=== PATIENT | male | born 1985 | race Caucasian/White ===

== ENCOUNTER 2016-11-06 08:40 | Emergency (ER) | payer BC ==
[2016-11-06 08:59] VITALS: BP 142/95
[2016-11-06] MEDS ORDERED: Tetracaine 0.5% 2 ML Bottle EYERT ONE (09:04)
[2016-11-06] MEDS ORDERED: Fluorescein 1 MG Ophth Strip EYERT ONE (09:05)
[2016-11-06] MEDS ORDERED: Erythromycin Base 0.5% Ophth Oint 3.5 GM Tube EYERT ONE (09:10)
--- NOTE | 2016-11-06 09:16 | EDM.PDOC ---
ED HPI GENERAL MEDICAL PROBLEM - General Chief Complaint: Eye Problems Stated Complaint: eye pain Time Seen by Provider: 11/06/16 08:58 Source of Information: Reports: Patient History Limitations: Reports: No Limitations - History of Present Illness INITIAL COMMENTS - FREE TEXT/NARRATIVE: This patient is a 31 year old male that presents to the ER. Patient reports waking up with right eye burning, itching, redness, watering. Patient denies injury. Patient denies being around grass or dust or an BF particles the past 2 days. Reports mowing 3 days ago. Patient denies espana, dizziness, n, v, d, f, congestion, cough, cp, soa. Patient vision intact. 20/20. Onset: Today Location: Reports: Other (Right eye) Severity: Mild Improves with: Reports: None Worsens with: Reports: None Associated Symptoms: Reports: No Other Symptoms. Denies: Confusion, Chest Pain , Cough, cough w sputum, Diaphoresis, Fever/Chills, Headaches, Loss of Appetite , Malaise, Nausea/Vomiting, Rash, Seizure, Shortness of Breath, Syncope, Weakness Right Eye Pain Score (Numeric/FACES): 7 - Related Data Allergies Allergy/AdvReac Type Severity Reaction Status Date / Time Sulfa (Sulfonamide Allergy Cannot Verified 11/06/16 08:45 Antibiotics) Remember Home Meds: Home Meds Lisinopril/Hydrochlorothiazide [Lisinopril-Hctz 20-25 mg Tab] 1 each PO DAILY [History] Metoprolol Succinate [Metoprolol Succinate] 100 mg PO DAILY 11/06/16 [History] Past Medical History - Past Health History Medical/Surgical History: Denies Medical/Surgical History Social & Family History - Family History Family Medical History: Noncontributory - Tobacco Use Smoking Status *Q: Never Smoker Second Hand Smoke Exposure: No ED ROS GENERAL - Review of Systems Review Of Systems: See Below Constitutional: Reports: No Symptoms HEENT: Reports: Eye Discharge (watery right), Other (right eye redness, itching , burning, watery. ) Respiratory: Reports: No Symptoms Cardiovascular: Reports: No Symptoms Endocrine: Reports: No Symptoms GI/Abdominal: Reports: No Symptoms : Reports: No Symptoms Musculoskeletal: Reports: No Symptoms Skin: Reports: No Symptoms Neurological: Reports: No Symptoms Psychiatric: Reports: No Symptoms Hematologic/Lymphatic: Reports: No Symptoms Immunologic: Reports: No Symptoms ED EXAM GENERAL W FULL EYE - Physical Exam Exam: See Below Exam Limited By: No Limitations General Appearance: Alert, WD/WN, No Apparent Distress Eye Exam: Right Eye: Conjunctival Injection, Bilateral Eye: Normal Fundi, PERRL Visual Acuity (R) 20/: 20 Visual Acuity (L) 20/: 20 With Correction: No Eyelids: Bilateral: Normal Appearance Conjunctiva & Sclera: Right: Injected Cornea Exam: Right: Examined with Flourescein, Bilateral: Normal Appearance Extraocular Movements: Bilateral: Intact Pupils: Normal Accommodation Pupillary Size: Bilateral: 4 mm Pupillary Reaction: Bilateral: Brisk Anterior Chamber: Bilateral: Normal Appearance Posterior Chamber: Bilateral: Normal Funduscopic Ears: Normal External Exam, Normal Canal, Hearing Grossly Normal, Normal TMs Nose: Normal Inspection, Normal Mucosa, No Blood Throat/Mouth: Normal Inspection, Normal Lips, Normal Teeth, Normal Gums, Normal Oropharynx, Normal Voice, No Airway Compromise Head: Atraumatic, Normocephalic Neck: Normal Inspection, Supple, Non-Tender, Full Range of Motion Respiratory/Chest: No Respiratory Distress, Lungs Clear, Normal Breath Sounds, No Accessory Muscle Use Cardiovascular: Normal Peripheral Pulses, Regular Rate, Rhythm, No Edema, No Gallop, No JVD, No Murmur, No Rub Back Exam: Normal Inspection Extremities: Normal Inspection, Normal Range of Motion, Non-Tender, No Pedal Edema, Normal Capillary Refill Neurological: Alert, Oriented Psychiatric: Normal Affect, Normal Mood Skin Exam: Warm, Dry, Intact, Normal Color, No Rash Lymphatic: No Adenopathy Course - Vital Signs Last Recorded V/S: Last Vital Signs Temp 97.6 F 11/06/16 08:51 Pulse 85 11/06/16 08:51 Resp 18 11/06/16 08:51 BP 142/95 H 11/06/16 08:51 Pulse Ox 98 11/06/16 08:51 - Orders/Labs/Meds Meds: Medications Discontinued Medications Generic Name Dose Route Start Last Admin Trade Name Freq PRN Reason Stop Dose Admin Erythromycin 3.5 gm 11/06/16 09:10 Erythromycin 0.5% Ophth Oint EYERT 11/06/16 09:11 ONETIME ONE Fluorescein Sodium 1 mg 11/06/16 09:05 Ful-Gunjan EYERT 11/06/16 09:06 ONETIME ONE Tetracaine 5 ml 11/06/16 09:04 Pontocaine 0.5% Ophth Drops EYERT 11/06/16 09:05 ASDIRECTED ONE Departure - Departure Time of Disposition: 09:15 Disposition: Home, Self-Care 01 Condition: Fair Clinical Impression: Conjunctivitis Qualifiers: Conjunctivitis type: acute Acute conjunctivitis type: unspecified Laterality: right Qualified Code(s): H10.31 - Unspecified acute conjunctivitis, right eye - Discharge Information Referrals: Michael Price MD [Primary Care Provider] - Forms: ED Department Discharge Additional Instructions: Followup with your primary care provider Followup with an learning and development specialist Erythromycin ointment apply to the eye 6 times a day while awake. #1 no refill; Take Home. - Assessment/Plan Plan: PLEASE SEE RN NOTE FOR PFSH.
[2016-11-06] MEDS ORDERED: Distilled Water Ophth Irrig Soln 120 ML Bottle EYERT ONE (09:19)
== END 2016-11-06 09:30 | disposition home or self-care (01) ==
LOC: CC.ED 08:40
DX: H10.31 Unspecified acute conjunctivitis, right eye (principal); Z88.2 Allergy status to sulfonamides; Z79.899 Other long term (current) drug therapy
CPT/HCPCS: 99282; A9270